=== PATIENT | female | born 1985 | race Asian ===

== ENCOUNTER 2017-08-14 05:30 | Inpatient (IN) | payer SELFPAY ==
[~2017-08-14] VITALS: Ht 160 cm; Wt 68.0 kg
[2017-08-14] MEDS ORDERED: LACTATED RINGERS 1,000 ML IV SCH (06:16)
[2017-08-14] MEDS ORDERED: IBUPROFEN 800 MG TAB PO PRN ×2 (06:20→07:10)
[2017-08-14] MEDS ORDERED: MORPHINE SULFATE 4 MG/ML SYR ONE (06:45)
[2017-08-14] MEDS ORDERED: BUPIVACAINE-MPF 0.75% 10 ML VIAL INJ ONE (06:45)
[2017-08-14] MEDS ORDERED: ONDANSETRON 4 MG/2 ML VIAL ONE (06:45)
[2017-08-14] MEDS ORDERED: ceFAZolin 1,000 MG VIAL ONE (06:53)
[2017-08-14] MEDS ORDERED: OXYTOCIN 10 UNITS/ML VIAL ONE (06:54)
[2017-08-14] MEDS ORDERED: TRIAMCINOLONE 40 MG/ML 5ML VIAL ONE (06:55)
[2017-08-14] MEDS ORDERED: CITRIC ACID/SODIUM CITRATE 30 ML UDC ONE (06:58)
[2017-08-14] MEDS ORDERED: MIDAZOLAM 2 MG/2 ML VIAL ONE (07:03)
[2017-08-14] MEDS ORDERED: KETAMINE 500 MG/5 ML VIAL ONE (07:04)
[2017-08-14] MEDS ORDERED: MORPHINE PRES FREE 10 MG/10 ML AMP IV ONE (07:04)
[2017-08-14] MEDS ORDERED: fentaNYL 0.05 MG/ML VIAL ONE (07:04)
[2017-08-14] MEDS ORDERED: oxyCODONE/APAP 5/325 MG 1 TAB TAB PO PRN (07:10)
[2017-08-14] MEDS ORDERED: TRIMETHOBENZAMIDE 200 MG/2 ML SYR IM PRN (07:10)
[2017-08-14] MEDS ORDERED: SIMETHICONE 80 MG TAB.CHEW PO PRN (07:10)
[2017-08-14] MEDS ORDERED: MEASLES, MUMPS, AND RUBELLA 1 VIAL SQVAC PRN (07:10)
[2017-08-14] MEDS ORDERED: METHYLERGONOVINE 0.2 MG/ML AMP IM PRN (07:10)
[2017-08-14] MEDS ORDERED: TEMAZEPAM 15 MG CAP PO PRN (07:10)
[2017-08-14 07:11] LABS: BASOPHILS # (AUTO) 0.2 K/uL (0.00-0.22); BASOPHILS % (AUTO) 1.5 % (0.0-2.0); EOSINOPHILS # (AUTO) 0.1 K/uL (0-0.4); EOSINOPHILS % (AUTO) 0.9 % (0.0-4.0); HEMATOCRIT 38.5 % (36-48); HEMOGLOBIN 12.9 g/dL (12.0-16.0); LYMPHOCYTES % (AUTO) 29.4 % (20.5-51.1); MEAN CORPUSCULAR HEMOGLOBIN 30 pg (27-31); MEAN CORPUSCULAR HGB CONC 33 g/dL (33-37); MEAN CORPUSCULAR VOLUME 90 fL (80-94); MONOCYTES # (AUTO) 0.8 K/uL (0.8-1.0); MONOCYTES % (AUTO) 8.2 % (1.7-9.3); NEUTROPHILS # (AUTO) 6.2 K/uL (1.8-7.7); PLATELET COUNT (AUTO) 287 K/uL (140-450); RED CELL DISTRIBUTION WIDTH 13.6 % (11.6-13.7); WHITE BLOOD COUNT (AUTO) 10.3 K/uL (4.8-10.8)
[2017-08-14 07:27] LABS: APPEARANCE,URINE CLEAR (CLEAR); BILIRUBIN,URINE NEGATIVE (NEGATIVE); BLOOD, URINE NEGATIVE (NEGATIVE); COLOR,URINE YELLOW (YELLOW); LEUKOCYTE ESTERASE ,URINE NEGATIVE (NEGATIVE); NITRITE, URINE NEGATIVE (NEGATIVE); UGLUCOSE NEGATIVE (NEGATIVE)
[2017-08-14] MEDS ORDERED: diphenhydrAMINE 50 MG/ML VIAL ONE (07:34)
[2017-08-14] MEDS ORDERED: ONDANSETRON 4 MG/2 ML VIAL IVP PRN (07:35)
[2017-08-14] MEDS ORDERED: KETOROLAC 30 MG/ML VIAL IVP PRN (07:35)
[2017-08-14] MEDS ORDERED: diphenhydrAMINE 50 MG/ML VIAL IVP PRN (07:35)
[2017-08-14 07:43] LABS: RBC,URINE NONE SEEN /HPF (0-5); WBC,URINE 0-5 (RARE) /HPF (0-5)
[2017-08-14] MEDS: OXYTOCIN 20 UNITS/LR PREMIX 1,000 ML IV ONE ×2 (08:05→08:35)
[2017-08-14 08:38] LABS: ANION GAP 15.4 (8-16); CARBON DIOXIDE 23.5 mmol/L (21-32); CREATININE 0.5 mg/dL (0.6-1.3); POTASSIUM 3.9 mmol/L (3.5-5.1)
[2017-08-14 08:45] LABS: TOTAL BILIRUBIN 0.4 mg/dL (0.0-1.0)
--- NOTE | 2017-08-14 16:27 | NUR ---
I S INSTRUCT GIVEN VIA INTURPTER NOMBER [id number]
[2017-08-14] MEDS: OXYTOCIN 20 UNITS in LACTATED RINGERS 1,000 ML IV SCH (20:59)
[2017-08-14] MEDS: DOCUSATE SOD/SENNA 50/8.6 MG 1 TAB PO SCH (21:00)
[2017-08-15] MEDS ORDERED: OXYTOCIN 20 UNITS/LR PREMIX 1,000 ML IV ONE (04:21)
[2017-08-15] MEDS: OXYTOCIN 20 UNITS in LACTATED RINGERS 1,000 ML IV SCH (04:34)
[2017-08-15 06:17] LABS: BASOPHILS % (AUTO) 0.3 % (0.0-2.0); EOSINOPHILS # (AUTO) 0.1 K/uL (0-0.4); EOSINOPHILS % (AUTO) 0.8 % (0.0-4.0); HEMATOCRIT 33.1 % (36-48); HEMOGLOBIN 11.1 g/dL (12.0-16.0); LYMPHOCYTES # (AUTO) 1.6 K/uL (2.5-16.5); MEAN CORPUSCULAR HEMOGLOBIN 30 pg (27-31); MEAN CORPUSCULAR HGB CONC 33 g/dL (33-37); MEAN CORPUSCULAR VOLUME 91 fL (80-94); MONOCYTES # (AUTO) 0.9 K/uL (0.8-1.0); MONOCYTES % (AUTO) 6.4 % (1.7-9.3); NEUTROPHILS # (AUTO) 11.5 K/uL (1.8-7.7); NEUTROPHILS % (AUTO) 81.5 % (42.2-75.2); PLATELET COUNT (AUTO) 259 K/uL (140-450); RED BLOOD CELL COUNT(AUTO) 3.66 MIL/uL (4.20-5.40); RED CELL DISTRIBUTION WIDTH 13.7 % (11.6-13.7)
[2017-08-15 06:50] LABS: WHITE BLOOD COUNT (AUTO) 14.1 K/uL (4.8-10.8)
[2017-08-15] MEDS: HYDROcodone/APAP 5/325 MG 1 TAB TAB PO PRN ×2 (06:54→11:40)
--- NOTE | 2017-08-15 07:57 | NUR ---
PATIENT HAS BEEN SCREENED AND CATEGORIZED LOW NUTRITION RISK. PATIENT WILL BE SEEN WITHIN 7 DAYS OF ADMISSION. 08/20/[address]
[2017-08-15 17:41] LABS: RAPID PLASMA REAGIN NON-REACTIVE (Non Reactiv)
[2017-08-15] MEDS: DOCUSATE SOD/SENNA 50/8.6 MG 1 TAB PO SCH (20:54)
[2017-08-17] MEDS ORDERED: INFLUENZA VIRUS VACCINE QUAD 0.5 ML SYR IMVAC SCH (00:25)
== END 2017-08-17 14:20 | disposition home or self-care (01) | DRG 766 ==
LOC: MLD 05:30 → MFCC 08:49
PROVIDERS: ADMIT Obstetrics & Gynecology; ATTEND Obstetrics & Gynecology
PROC: 10D00Z1 Extraction of Products of Conception, Low, Open Approach (ICD-10-PCS; principal; 2017-08-14 06:45)
PROC: 3E0234Z Introduction of Serum, Toxoid and Vaccine into Muscle, Percutaneous Approach (ICD-10-PCS; 2017-08-17)
DX: O82 Encounter for cesarean delivery without indication (principal); Z23 Encounter for immunization; Z37.0 Single live birth; Z3A.39 39 weeks gestation of pregnancy
CPT/HCPCS: 36415; 80053; 81001; 85025; 86592; 86886; 86900; 86901; 90658; 90707; 90715; J0690; J1200; J2250; J2270; J2405; J2590; J3010; J3301; J3490; J7060; J7120